=== PATIENT | female | born 1955 | race Caucasian/White ===

== ENCOUNTER → 2018-10-16 | Day surgery (SDC) | payer BC ==
--- NOTE | 2018-10-18 10:28 | PATH ---
Surgical Pathology Report Patient Name: OLGA LIDIA SAMUELS [facility]. Rec. #: [id number] /Age/Gender: 1955 (Age: 62) / F Account: [id number] Location: [facility] Taken: 10/16/2018 Received: 10/16/2018 Reported: 10/18/2018 Physicians: Linn Russell M.D. Specimen(s) Received A: LEFT BREAST WITH CALCIFICATIONS B: LEFT BREAST WITHOUT CALCIFICATIONS C: RIGHT BREAST WITH CALCIFICATIONS D: RIGHT BREAST WITHOUT CALCIFICATIONS Clinical History Nonpalpable lesion Mammographic findings: Microcalcification, suspicious Final Diagnosis A. LEFT BREAST SPECIMEN WITH CALCIFICATIONS, BIOPSY: ATYPICAL DUCTAL HYPERPLASIA (ADH) INVOLVING FIBROADENOMA, WITH ASSOCIATED CALCIFICATIONS. REMAINING BREAST TISSUE SHOWS INTRADUCTAL PAPILLOMA, PROLIFERATIVE FIBROCYSTIC CHANGES INCLUDING USUAL DUCTAL HYPERPLASIA CYSTS (UDH), APOCRINE METAPLASIA, AND COLUMNAR CELL CHANGES. B. LEFT BREAST SPECIMEN WITHOUT CALCIFICATIONS, BIOPSY: BREAST TISSUE WITH PROLIFERATIVE FIBROCYSTIC CHANGES INCLUDING USUAL DUCTAL HYPERPLASIA CYSTS (UDH), APOCRINE METAPLASIA, AND STROMAL FIBROSIS. C. RIGHT BREAST SPECIMEN WITH CALCIFICATIONS, BIOPSY BREAST TISSUE WITH PROLIFERATIVE FIBROCYSTIC CHANGES INCLUDING USUAL DUCTAL HYPERPLASIA CYSTS (UDH), ADENOSIS, MICROCYST, APOCRINE METAPLASIA, STROMAL FIBROSIS, AND MICROCALCIFICATIONS. D. RIGHT BREAST SPECIMEN WITHOUT CALCIFICATIONS, BIOPSY BREAST TISSUE WITH PROLIFERATIVE FIBROCYSTIC CHANGES INCLUDING USUAL DUCTAL HYPERPLASIA (UDH), APOCRINE METAPLASIA, MICROCYST, STROMAL FIBROSIS, AND MICROCALCIFICATIONS. Electronically Signed Katharine Orosco M.D. Gross Description A. Received in formalin labeled "left breast with calcifications," are 4 south-yellow, cylindrical portions of fibroadipose tissue ranging from 0.5-2.5 cm in length and averaging 0.3 cm in diameter. The specimens are submitted in toto in one cassette. B. Received in formalin labeled "left breast without calcifications," is a 2.0 x 1.7 x 0.3 cm aggregate of multiple south-yellow, irregular to cylindrical portions of fibroadipose tissue. The formalin is filtered and the specimen is entirely submitted in one cassette. C. Received in formalin labeled "right breast with calcifications," are 4 south-yellow, cylindrical portions of fibroadipose tissue ranging from 3.5-4.2 cm in length and averaging 0.2 cm in diameter. The specimens are submitted in toto in one cassette. D. Received in formalin labeled "right breast without calcifications," is a 2.5 x 2.4 x 0.3 cm aggregate of multiple south-yellow, irregular to cylindrical portions of fibroadipose tissue. The formalin is filtered and the specimen is entirely submitted in one cassette. Time to formalin fixation: 5 minutes Total formalin fixation time: Approximately 7 hours. 10/16/2018 [facility]10/16/2018
== END | disposition home or self-care (01) ==
LOC: FMAMMOTONE 09:13
PROVIDERS: ATTEND Surgery Surgical Oncology
PROC: 0HBV3ZX Excision of Bilateral Breast, Percutaneous Approach, Diagnostic (ICD-10-PCS; principal; 2018-10-16)
DX: D24.2 Benign neoplasm of left breast (principal); N60.92 Unspecified benign mammary dysplasia of left breast; N60.82 Other benign mammary dysplasias of left breast; N64.89 Other specified disorders of breast; N60.81 Other benign mammary dysplasias of right breast; N60.31 Fibrosclerosis of right breast
CPT/HCPCS: 19081; 88305-TC

== ENCOUNTER 2019-02-04 08:08 | Day surgery (SDC) | payer BC ==
[2019-01-27 16:43] VITALS: BMI 36.3
--- NOTE | 2019-02-03 09:25 | HP ---
Admitting History and Physical - Primary Care Physician PCP: Dani Campos - Admission Chief Complaint: left breast atypia History of Present Illness: This is a 63 yo female who was noted to have microcalcifications on mammo. The patient underwent a stereo core bx of the left breast which was c/w atypia. The patient is now to undergo left breast WE with NL. History Source: Patient Limitations to Obtaining History: No Limitations - Past Medical History Cardiovascular: Yes: HTN Endocrine: Yes: Diabetes Mellitus Additional Past Medical History: Chronic constipation ? IBS - Past Surgical History Past Surgical History: Yes: , Hysterectomy (CRYSTAL/BSO sec to fibroids 1994) Additional Past Surgical History: Bilateral knee replacement 2005 and 2016 - Advance Directives Advance Directives: Yes: Health Care Proxy - Smoking History Smoking history: Never smoked Have you smoked in the past 12 months: No - Alcohol/Substance Use Hx Alcohol Use: No Home Medications - Allergies Allergies/Adverse Reactions: Allergies Allergy/AdvReac Type Severity Reaction Status Date / Time iv contrast Allergy Severe Uncoded 01/23/19 14:02 - Home Medications Home Medications: Ambulatory Orders Lisinopril 10 mg PO DAILY #7 tablet 02/25/14 Ubidecarenone/Vitamin E Mixed [Coq10 Sg 100 Softgel] 1 each PO DAILY capsule Linaclotide [Linzess] 1 cap PO PRN PRN 02/03/15 Family Disease History - Family Disease History Family Disease History: CA: Sister (melanoma and lymphoma) Review of Systems - Review of Systems Gastrointestinal: reports: Abdominal Pain, Constipation Musculoskeletal: reports: Back Pain, Joint Pain, Joint Swelling, Muscle Pain, Other (arthralgia) Physical Examination Constitutional: Yes: Well Nourished Cardiovascular: Yes: WNL Respiratory: Yes: WNL Breast(s): Yes: Other (Breast are symmetrical and diffusely nodular without suspicious masses or adenopathy noted bilaterally.) Problem List - Problems (1) Atypical hyperplasia of left breast Code(s): N62 - HYPERTROPHY OF BREAST Assessment/Plan Left breast wide excision with NL
[2019-02-04] MEDS ORDERED: LIDOCAINE HCL 1% PRESERVATIVE FREE - 30ML VIAL ONE (10:58)
[2019-02-04] MEDS ORDERED: BUPIVACAINE HCL/PF 2.5 MG/ML - 30 ML VIAL IJ ONE (10:59)
[2019-02-04] MEDS ORDERED: PROPOFOL 20 ML ONE (11:43)
[2019-02-04] MEDS ORDERED: MIDAZOLAM HCL 2 MG/2 ML SINGLE DOSE VIAL ONE (11:43)
[2019-02-04] MEDS ORDERED: SUCCINYLCHOLINE CHLORIDE 200 MG/10 ML VIAL ONE (11:43)
[2019-02-04] MEDS ORDERED: LIDOCAINE HCL/PF 2% SDV 5ML VIAL ONE (11:59)
[2019-02-04] MEDS ORDERED: ePHEDrine SULFATE 50 MG/1 ML AMPULE ONE ×2 (12:11→12:12)
[2019-02-04] MEDS ORDERED: ONDANSETRON 4 MG/2 ML VIAL IVPUSH PRN ×2 (12:15→13:07)
[2019-02-04] MEDS ORDERED: DEXTROSE 5%-0.45% SALINE 1,000 ML IV SCH (12:15)
[2019-02-04] MEDS ORDERED: KETOROLAC TROMETHAMINE 30 MG/1 ML VIAL IVPUSH PRN (12:15)
[2019-02-04] MEDS ORDERED: ceFAZolin SODIUM 1 GM VIAL ONE ×2 (12:17→12:22)
[2019-02-04] MEDS ORDERED: ONDANSETRON 4 MG/2 ML VIAL ONE (12:22)
[2019-02-04] MEDS ORDERED: DEXAMETHASONE SOD PHOSPHATE 4 MG/1 ML VIAL ONE (12:22)
[2019-02-04] MEDS ORDERED: oxyCODONE HCL 5 MG TABLET PO PRN (13:07)
[2019-02-04] MEDS ORDERED: LACTATED RINGERS SOLUTION 1,000 ML IV SCH (13:15)
[2019-02-04] MEDS ORDERED: oxyCODONE HCL 5 MG TABLET ONE (13:39)
[2019-02-04 13:53] VITALS: TEMP 97.5
--- NOTE | 2019-02-05 06:36 | OP ---
DATE OF OPERATION: 02/04/2019 PREOPERATIVE DIAGNOSIS: Left breast atypical ductal hyperplasia. POSTOPERATIVE DIAGNOSIS: Left breast atypical ductal hyperplasia. PROCEDURE: Left mammographically localized partial mastectomy. ANESTHESIA: General, intubated. ATTENDING SURGEON: Dani Campos MD ESTIMATED BLOOD LOSS: Minimal. COMPLICATIONS: None. PROCEDURE: Patient was made aware of the risks and benefits of the procedure and consented. Preoperatively she went to the radiology suite where needle and wire were placed next to the index lesion. She was then placed in a supine position and after general anesthesia was induced the patient was intubated. The operative site was prepped and draped in the usual sterile fashion. Curvilinear incision was made and using electrocautery thick skin flaps were made. The needle was withdrawn to the puncture site and the wire to the wound. Tissues around the wire were then sharply excised and submitted with a short suture superior, long suture lateral. Specimen radiograph confirmed the presence of the index lesion. The wound was copiously irrigated with normal saline, hemostasis maintained by electrocautery. The breast was then closed with deep 2-0 Vicryl followed by subdermal 3-0 Vicryl followed by a running subcuticular 4-0 Monocryl. Dermabond was then applied and the patient, having tolerated the procedure well, was transferred to the recovery room in excellent condition. DANI CAMPOS M.D. [id number]
[2019-02-07 09:34] VITALS: BP 117/61; PULSE 70
--- NOTE | 2019-02-07 15:36 | PATH ---
Surgical Pathology Report Patient Name: OLGA LIDIA SAMUELS [facility]. Rec. #: [id number] /Age/Gender: 1955 (Age: 63) / F Account: [id number] Location: [facility] Taken: 02/04/2019 Received: 02/04/2019 Reported: 02/07/2019 Physicians: Dani Campos M.D. Specimen(s) Received LEFT BREAST WIDE EXCISION Clinical History ADH Final Diagnosis BREAST, LEFT, WIDE EXCISION: FOCAL ATYPICAL DUCTAL HYPERPLASIA (ADH) ARISING IN A BACKGROUND OF PROLIFERATIVE FIBROCYSTIC CHANGES INCLUDING CYSTIC APOCRINE METAPLASIA AND USUAL DUCTAL HYPERPLASIA (UDH), COLUMNAR CELL CHANGE, SMALL INTRADUCTAL PAPILLOMA AND FEW ASSOCIATED CALCIFICATIONS. PRIOR BIOPSY SITE CHANGES ARE PRESENT. Electronically Signed Sandra Harding M.D. Gross Description Received in formalin, labeled "left breast wide excision," is a 3.0 x 2.7 x 2.2 cm. south-yellow, irregular, portion of fibroadipose tissue with a needle localization wire present. There is a short suture marking the superior aspect and a long suture marking the lateral aspect, per the surgeon. There is no skin present. The specimen is inked as follows: superior and lateral blue; inferior green; medial yellow; anterior red; deep black. The specimen is serially sectioned from superior to inferior. Sectioning reveals a focal previous biopsy site surrounded by fibrous tissue. There is a yuan metallic biopsy clip identified within the biopsy site. No definitive mass is identified. The specimen is entirely and sequentially submitted in 6 cassettes with the superior margin in cassette 1, the inferior margin in cassette 6 and the biopsy site/clip in cassette 2. Time to formalin fixation: 5 minutes Total formalin fixation time: Approximately 29 hours. /02/05/2019 [facility]02/05/2019
== END 2019-02-04 15:15 | disposition home or self-care (01) ==
LOC: FASU 08:08
PROVIDERS: ATTEND Surgery Surgical Oncology
PROC: 0HBU0ZZ Excision of Left Breast, Open Approach (ICD-10-PCS; principal; 2019-02-04 12:20)
DX: N60.92 Unspecified benign mammary dysplasia of left breast (principal); N60.12 Diffuse cystic mastopathy of left breast; I10 Essential (primary) hypertension; E11.9 Type 2 diabetes mellitus without complications; E66.01 Morbid (severe) obesity due to excess calories; Z79.84 Long term (current) use of oral hypoglycemic drugs
CPT/HCPCS: 19281; 88307-TC; 94760

== ENCOUNTER 2019-08-20 08:16 | Inpatient (IN) | payer BC ==
[2019-08-20] MEDS ORDERED: FAMOTIDINE 20 MG TABLET PO ONE (09:11)
[2019-08-20] MEDS ORDERED: ONDANSETRON 4 MG/2 ML VIAL IVPB ONE (09:11)
[2019-08-20] MEDS ORDERED: SODIUM CHLORIDE 1,000 ML IV STA (09:11)
[2019-08-20] MEDS ORDERED: FAMOTIDINE 20 MG/50 ML IVPB 20 MG/50 ML MG IVPB ONE (09:17)
[2019-08-20 10:05] LABS: EOS % 0.2 % (0-4.5); HEMATOCRIT 34.4 % (32.4-45.2); HEMOGLOBIN 11.5 GM/dL (10.7-15.3); LYMPH % 12.6 % (8-40); MCH 30.9 pg (25.7-33.7); MCHC 33.4 g/dl (32.0-36.0); MEAN CELL VOLUME 92.4 fl (80-96); MEAN PLT VOLUME 10.4 fl (7.5-11.1); MONO % 4.2 % (3.8-10.2); PLATELET COUNT 277 K/MM3 (134-434); RBC 3.72 M/mm3 (3.60-5.2); RDW 14.9 % (11.6-15.6); WHITE BLOOD COUNT 9.6 K/mm3 (4.0-10.0)
[2019-08-20 10:33] LABS: ALBUMIN 3.8 g/dl (3.4-5.0); BILIRUBIN,TOTAL 0.3 mg/dL (0.2-1); BLOOD UREA NITROGEN 20.3 mg/dL (7-18); CALCIUM 8.9 mg/dL (8.5-10.1); CREATININE 0.7 mg/dL (0.55-1.3); POTASSIUM 3.8 mmol/L (3.5-5.1); TOT PROT 7.4 g/dl (6.4-8.2)
[2019-08-20 12:24] LABS: PH,URINE 5.5 (5.0-8.0); URINE APPEARANCE CLEAR; URINE BILIRUBIN NEGATIVE (NEGATIVE); URINE COLOR YELLOW; URINE GLUCOSE (UA) NEGATIVE (NEGATIVE); URINE KETONE NEGATIVE (NEGATIVE); URINE LEUK ESTERASE NEGATIVE (NEGATIVE); URINE NITRITE NEGATIVE (NEGATIVE); URINE PROTEIN NEGATIVE (NEGATIVE); URINE UROBILINOGEN 0.2 mg/dL (0.2-1.0)
[2019-08-20] MEDS ORDERED: morphine CARPU-JECT 2 MG/1 ML DISP.SYRIN IVPUSH ONE ×2 (13:10→13:53)
[2019-08-20] MEDS ORDERED: MORPHINE SULFATE 2 MG/ML VIAL ONE (13:18)
[2019-08-20] MEDS ORDERED: MORPHINE SULFATE 2 MG/ML VIAL IVPUSH ONE (13:53)
[2019-08-20] MEDS ORDERED: SUCRALFATE 1 GM TABLET (FP) PO ONE (15:12)
--- NOTE | 2019-08-20 16:49 | PDOC ---
Documentation entered by Toña Ricardo SCRIBE, acting as scribe for Dwight Matos MD. Dwight aMtos MD: This documentation has been prepared by the Haleigh osullivan Sammi, SCRIBE, under my direction and personally reviewed by me in its entirety. I confirm that the documentation accurately reflects all work, treatment, procedures, and medical decision making performed by me. History of Present Illness - General Chief Complaint: Pain, Acute Stated Complaint: ABD. PAIN/ VOMITNG Time Seen by Provider: 08/20/19 08:38 - History of Present Illness Initial Comments: 08/20/19 09:15 The patient is a 63 year old male, with PMH of HTN, borderline DM, who presents with epigastric abdominal pain since 11pm last night, 05/15 with associated reflux discomfort and abdominal distention. She reports 1 episode of vomiting at 3am. Denies diarrhea. Last bowel movement yesterday and was normal. Denies urinary changes. Allergies: IV contrast Surgical hx: , hysterectomy PCP: Cain Past History - Past Medical History Allergies/Adverse Reactions: Allergies Allergy/AdvReac Type Severity Reaction Status Date / Time iv contrast Allergy Severe Uncoded 01/23/19 14:02 Home Medications: Ambulatory Orders Lisinopril 10 mg PO DAILY #7 tablet 02/25/14 Ubidecarenone/Vitamin E Mixed [Coq10 Sg 100 Softgel] 1 each PO DAILY capsule Linaclotide [Linzess] 1 cap PO PRN PRN 02/03/15 Oxycodone HCl/Acetaminophen [Percocet 5-325 mg Tablet] 1 tab PO Q6H PRN #7 tablet MDD 4 02/04/19 Anemia: Yes Asthma: No Cancer: No Cardiac Disorders: No CVA: No COPD: No CHF: No Dementia: No Diabetes: No GI Disorders: Yes (DIVERTICULOSIS;CONSTIPATION;INT HEARTBURN; HIATAL HERNIA, ANTRAL ULCERS) Disorders: No HTN: Yes Hypercholesterolemia: Yes Liver Disease: No Seizures: No Thyroid Disease: No - Surgical History Abdominal Surgery: No Appendectomy: No Cardiac Surgery: No Cholecystectomy: No Lung Surgery: No Neurologic Surgery: No Orthopedic Surgery: Yes (RIGHT KNEE REPLACEMENT) - Immunization History Immunization Up to Date: No - Psycho Social/Smoking Cessation Hx Smoking History: Never smoked Have you smoked in the past 12 months: No Information on smoking cessation initiated: No Hx Alcohol Use: No Drug/Substance Use Hx: No Substance Use Type: None Hx Substance Use Treatment: No Review of Systems - Review of Systems Comments:: 08/20/19 09:15 CONSTITUTIONAL: No fever, no chills, no fatigue CARDIOVASCULAR: No chest pain, no palpitations RESPIRATORY: No cough, no SOB GI: +epigastric pain +abdominal distention GENITOURINARY: No dysuria, no frequency, no hematuria MUSKULOSKELETAL: No backpain, no joint pain, no myalgias SKIN: No rash NEURO: No headache *Physical Exam - Vital Signs Last Vital Signs Temp Pulse Resp BP Pulse Ox 98.0 F 74 16 147/76 99 08/20/19 08:23 08/20/19 08:23 08/20/19 08:23 08/20/19 08:23 08/20/19 08:23 - Physical Exam 08/20/19 12:15 CONSTITUTIONAL: Well-appearing; well-nourished; in no apparent distress EYES: PERRL; EOM intact ENMT: External appears normal; normal oropharynx NECK: Supple; non-tender; no cervical lymphadenopathy CARD: Normal S1, S2; no murmurs, rubs, or gallops RESP: Normal chest excursion with respiration; breath sounds clear and equal bilaterally; no wheezes, rhonchi, or rales ABD: +Epigastric, LUQ, LLQ tenderness EXT: Normal ROM in all four extremities; non-tender to palpation; distal pulses intact SKIN: Warm, dry, no rash NEURO: No focal neurological deficiencies. ED Treatment Course - LABORATORY CBC & Chemistry Diagram: 08/20/19 09:20 08/20/19 09:20 - ADDITIONAL ORDERS Additional order review: Laboratory Results 08/20/19 08/20/19 08/20/19 11:44 09:20 09:20 Sodium 137 Potassium 3.8 Chloride 106 Carbon Dioxide 26 Anion Gap 6 L BUN 20.3 H Creatinine 0.7 Est GFR (CKD-EPI)AfAm 108.38 Est GFR (CKD-EPI)NonAf 93.51 Random Glucose 116 H Calcium 8.9 Total Bilirubin 0.3 AST 12 L ALT 24 Alkaline Phosphatase 89 Creatine Kinase Troponin I Total Protein 7.4 Albumin 3.8 Lipase 74 Urine Color Yellow Urine Appearance Clear Urine pH 5.5 Ur Specific [place] 1.013 Urine Protein Negative Urine Glucose (UA) Negative Urine Ketones Negative Urine Blood Negative Urine Nitrite Negative Urine Bilirubin Negative Urine Urobilinogen 0.2 Ur Leukocyte Esterase Negative 08/20/19 09:20 Sodium Potassium Chloride Carbon Dioxide Anion Gap BUN Creatinine Est GFR (CKD-EPI)AfAm Est GFR (CKD-EPI)NonAf Random Glucose Calcium Total Bilirubin AST ALT Alkaline Phosphatase Creatine Kinase 113 Troponin I < 0.02 Total Protein Albumin Lipase Urine Color Urine Appearance Urine pH Ur Specific [place] Urine Protein Urine Glucose (UA) Urine Ketones Urine Blood Urine Nitrite Urine Bilirubin Urine Urobilinogen Ur Leukocyte Esterase 08/20/19 09:20 RBC 3.72 MCV 92.4 MCHC 33.4 RDW 14.9 MPV 10.4 Neutrophils % 82.0 Lymphocytes % 12.6 Monocytes % 4.2 Eosinophils % 0.2 Basophils % 1.0 - RADIOLOGY Radiology Studies Ordered: Category Date Time Status ABDOMEN & PELVIS CT W/O CONTR [CT] Stat CT Scan 08/20/19 11:32 Completed ABDOMEN US -LIMITED [US] Stat Ultrasound 08/20/19 15:12 Completed - Medications Given in the ED: ED Medications Discontinued Medications Generic Name Dose Route Start Last Admin Trade Name Freq PRN Reason Stop Dose Admin Famotidine 20 mg 08/20/19 09:11 08/20/19 09:55 Pepcid - PO 08/20/19 09:12 Not Given ONCE ONE Medical Decision Making - Medical Decision Making 08/20/19 16:48 Patient 63-year-old female with history of hypertension, prediabetes, peptic ulcer disease who presents with atraumatic right upper quadrant, epigastric and left upper quadrant abdominal pain which increased in severity over the past 24 hours, associated with nausea, and a singular episode of nonbloody, nonbilious vomiting prior to arrival. In the ER, patient is awake and alert, nontoxic- appearing, with mild to moderate tenderness to palpation in the right upper quadrant and the epigastrium primarily; patient is received H2 blockers, Carafate and IV morphine with modest improvement in level of her pain. CT of abdomen pelvis revealed no evidence of significant intra-abdominal pathology, cholelithiasis was noted. Right upper quadrant ultrasound revealed multiple calculi with a borderline gallbladder wall thickness. Patient continues to complain of pain at this time. She will likely require admission for HIDA scan as well as surgical and GI evaluations. Discharge - Discharge Information Problems reviewed: Yes Clinical Impression/Diagnosis: Epigastric pain Cholelithiases Qualifiers: Cholelithiasis location: gallbladder Cholecystitis presence: without cholecystitis Biliary obstruction: without biliary obstruction Qualified Code(s) : K80.20 - Calculus of gallbladder without cholecystitis without obstruction Condition: Fair - Admission Yes - Follow up/Referral - Patient Discharge Instructions - Post Discharge Activity
--- NOTE | 2019-08-20 19:46 | HP ---
Admitting History and Physical - Admission Chief Complaint: Acute RUQ and epigastric pain accompanied by nausea and vomiting. History of Present Illness: This 63 yr old female with hx of hypertension, prediabetes, and peptic ulcer disease admitted via ER with acute RUQ and epigastric abdominal pain accompanied by nausea and one bout of vomiting. History Source: Patient, Medical Record Limitations to Obtaining History: No Limitations - Past Medical History CLINICAL TRAINING COORDINATOR: No: Alzheimer's, CVA, Dementia, Migraine, Multiple Sclerosis, Peripheral Neuropathy, Parkinson's, Seizure, Syncope, TIA, Vertigo, Other Cardiovascular: Yes: HTN Pulmonary: No: Asthma, Bronchitis, Cancer, COPD, O2 Dependent, Pneumonia, Previously Intubated, Pulmonary Embolus, Pulmonary Fibrosis, Sleep Apnea, Other Gastrointestinal: Yes: Constipation, Diverticulosis, Peptic Ulcer Disease Hepatobiliary: Yes: Cholelithiasis Renal/: No: Renal Failure, Renal Inusuff, BPH, Cancer, Hematuria, Hemodialysis , Neurogenic Bladder, Renal Calculi, UTI, Other Reproductive: Yes: Fibroids, Other (s/p hysterectomy with bilateral oophorectomy ) Heme/Onc: No: Anemia, B12 Deficiency, Bleeding Disorder, Cancer, Current Chemotherapy, Current Radiation Therapy, Hemochromatosis, Hypercoaguable State, Myeloproliferative Synd, Sickle Cell Disease, Sickle Cell Trait, Thrombocytopenia, Other Infectious Disease: No: AIDS, C-Diff, Herpes Zoster, HIV, MRSA, STD's, Tuberculosis, VREF, Other Psych: No: Addictions, Anxiety, Bipolar, Depression, Panic, Psychosis, Schizophrenia, Other Musculoskeletal: Yes: Osteoarthritis, Other (s/p bilateral knee replacement) Rheumatology: No: Fibromyalgia, Gout, Lupus, Rheumatoid Arthritis, Sarcoidosis, Vasculitis, Other ENT: No: Allergic Rhinitis, Sinusitis, Other Endocrine: Yes: Diabetes Mellitus Dermatology: No: Basal Cell, Cellulitis, Eczema, Melanoma, Psoriasis, Squamous Cell, Other - Past Surgical History Past Surgical History: Yes: , Hysterectomy (CRYSTAL/BSO sec to fibroids 1994), Oopherectomy - Smoking History Smoking history: Never smoked Have you smoked in the past 12 months: No - Alcohol/Substance Use Hx Alcohol Use: No - Social History Usual Living Arrangement: Yes: Alone History of Recent Travel: No Home Medications - Allergies Allergies/Adverse Reactions: Allergies Allergy/AdvReac Type Severity Reaction Status Date / Time iv contrast Allergy Severe Uncoded 01/23/19 14:02 - Home Medications Home Medications: Ambulatory Orders Lisinopril 10 mg PO DAILY #7 tablet 02/25/14 Ubidecarenone/Vitamin E Mixed [Coq10 Sg 100 Softgel] 1 each PO DAILY capsule Linaclotide [Linzess] 1 cap PO PRN PRN 02/03/15 Oxycodone HCl/Acetaminophen [Percocet 5-325 mg Tablet] 1 tab PO Q6H PRN #7 tablet MDD 4 02/04/19 Family Medical History Family Hx Cancer: Sister (h) Review of Systems - Review of Systems Constitutional: reports: Loss of Appetite Eyes: reports: No Symptoms HENT: reports: No Symptoms Neck: reports: No Symptoms Cardiovascular: reports: No Symptoms Respiratory: reports: No Symptoms Gastrointestinal: reports: Constipation, Nausea, Vomiting Genitourinary: reports: No Symptoms Breasts: reports: No Symptoms Reported Musculoskeletal: reports: No Symptoms Integumentary: reports: No Symptoms Neurological: reports: No Symptoms Endocrine: reports: No Symptoms Hematology/Lymphatic: reports: No Symptoms Psychiatric: reports: No Symptoms Physical Examination Vital Signs: Vital Signs Temperature 98.3 F 08/20/19 16:25 Pulse Rate 65 08/20/19 16:25 Respiratory Rate 18 08/20/19 16:25 Blood Pressure 143/79 08/20/19 16:25 O2 Sat by Pulse Oximetry (%) 97 08/20/19 16:25 Constitutional: Yes: Well Nourished, Calm, Mild Distress Eyes: Yes: Conjunctiva Clear, EOM Intact HENT: Yes: Atraumatic, Normocephalic Neck: Yes: Supple, Trachea Midline Cardiovascular: Yes: Regular Rate and Rhythm Respiratory: Yes: Regular, CTA Bilaterally Gastrointestinal: Yes: Normal Bowel Sounds, Soft, Tenderness, Epigastrium ...Rectal Exam: Yes: Deferred Renal/: Yes: WNL Breast(s): Yes: WNL Musculoskeletal: Yes: Other (s/p bilateral knee repacement) Extremities: Yes: WNL Edema: No Peripheral Pulses WNL: Yes Peripheral Pulses: Left Radial: 2+, Right Radial: 2+, Left Doralis Pedis: 2+, Right Dorsalis Pedis: 2+, Left Femoral: 2+, Right Femoral: 2+ Integumentary: Yes: WNL Neurological: Yes: Alert, Oriented ...Motor Strength: WNL Psychiatric: Yes: Alert, Oriented Labs: CBC, BMP 08/20/19 09:20 08/20/19 09:20 Imaging - Results Other: Report Reviewed (Lab data reviewed) Problem List - Problems (1) RUQ abdominal pain Code(s): R10.11 - RIGHT UPPER QUADRANT PAIN (2) Cholelithiases Code(s): K80.20 - CALCULUS OF GALLBLADDER W/O CHOLECYSTITIS W/O OBSTRUCTION Qualifiers: Cholelithiasis location: gallbladder Cholecystitis presence: without cholecystitis Biliary obstruction: without biliary obstruction Qualified Code(s): K80.20 - Calculus of gallbladder without cholecystitis without obstruction (3) Epigastric pain Code(s): R10.13 - EPIGASTRIC PAIN (4) Hypertension Code(s): I10 - ESSENTIAL (PRIMARY) HYPERTENSION (5) Prediabetes Code(s): R73.03 - PREDIABETES (6) Diverticulosis Code(s): K57.90 - DVRTCLOS OF INTEST, PART UNSP, W/O PERF OR ABSCESS W/O BLEED (7) Facet arthritis, degenerative, lumbar spine Code(s): M47.816 - SPONDYLOSIS W/O MYELOPATHY OR RADICULOPATHY, LUMBAR REGION Assessment/Plan Assessment/plan: acute RUQ and epigastric pain, acute nausea and vomiting; IV fluids, analgesics, antiemetic, npo except for meds, consult to GI and surgeon.
[2019-08-20] MEDS ORDERED: traMADol HCL 50 MG TABLET PO PRN (20:05)
[2019-08-20] MEDS ORDERED: LACTATED RINGERS SOLUTION 1,000 ML/1,000 ML INFUS.BAG IV SCH (20:05)
[2019-08-20] MEDS ORDERED: ONDANSETRON 4 MG TABLET PO PRN (20:09)
[2019-08-20 23:26] VITALS: BMI 36.0
[2019-08-21] MEDS ORDERED: traMADol HCL 50 MG TABLET ONE (06:19)
[2019-08-21 06:58] LABS: EOS % 3.8 % (0-4.5); HEMATOCRIT 32.2 % (32.4-45.2); HEMOGLOBIN 10.8 GM/dL (10.7-15.3); LYMPH % 26.1 % (8-40); MCH 31.2 pg (25.7-33.7); MCHC 33.7 g/dl (32.0-36.0); MEAN CELL VOLUME 92.6 fl (80-96); MEAN PLT VOLUME 10.7 fl (7.5-11.1); MONO % 11.7 % (3.8-10.2); NEUT % 57.4 % (42.8-82.8); PLATELET COUNT 253 K/MM3 (134-434); RBC 3.48 M/mm3 (3.60-5.2); RDW 14.8 % (11.6-15.6); WHITE BLOOD COUNT 7.4 K/mm3 (4.0-10.0)
[2019-08-21 07:38] LABS: BILIRUBIN,TOTAL 0.4 mg/dL (0.2-1); BLOOD UREA NITROGEN 12.4 mg/dL (7-18); CALCIUM 8.6 mg/dL (8.5-10.1); CREATININE 0.7 mg/dL (0.55-1.3); POTASSIUM 3.5 mmol/L (3.5-5.1); TOT PROT 6.2 g/dl (6.4-8.2)
--- NOTE | 2019-08-21 09:01 | CONSULT ---
- Consultation REQUESTING PROVIDER: Carlo WEIR CONSULT REQUEST: We have been asked to surgically evaluate this patient for abdominal pain. PCP:Sarita Barlow MD HISTORY OF PRESENT ILLNESS:CTSP patient who is a 63 year old female, with PMH of HTN, borderline DM, who presents with epigastric abdominal pain since 11pm last night, 05/15 with associated reflux discomfort and abdominal distention. She reports 1 episode of vomiting at 3am. Denies diarrhea. Last bowel movement yesterday and was normal. Denies urinary changes. Denies dark urine/light stools ; no other GI//WATERSHED COORDINATOR c/o; she has been on a "keto diet "; she knew she had gallstones in the past from previous imaging.Pain is colicky in nature and started after eating. . PMHx: HTN/HLD/abnormal breast imaging PSHx: CRYSTAL; C-S ; b/l TKR Home Medications Medication Instructions Recorded Lisinopril 10 mg PO DAILY #7 tablet 02/25/14 Ubidecarenone/Vitamin E Mixed 1 each PO DAILY capsule 02/25/14 [Coq10 Sg 100 Softgel] Linaclotide [Linzess] 1 cap PO PRN PRN 02/03/15 Oxycodone HCl/Acetaminophen 1 tab PO Q6H PRN #7 tablet MDD 4 02/04/19 [Percocet 5-325 mg Tablet] Allergies Allergy/AdvReac Type Severity Reaction Status Date / Time Iodinated Contrast Media Allergy Severe Swelling Verified 08/20/19 20:46 iv contrast Allergy Severe Uncoded 01/23/19 14:02 REVIEW OF SYSTEMS: CONSTITUTIONAL: Absent: fever, chills, diaphoresis, generalized weakness, malaise, loss of appetite, weight change CARDIOVASCULAR: Absent: chest pain, syncope, palpitations, irregular heart rate, lightheadedness , peripheral edema RESPIRATORY: Absent: cough, shortness of breath, dyspnea with exertion, wheezing, stridor, hemoptysis GASTROINTESTINAL: Present: abdominal pain, abdominal distension, nausea, vomiting, Absent: diarrhea, constipation, melena, hematochezia GENITOURINARY: Absent: dysuria, frequency, urgency, hesitancy, hematuria, flank pain, genital pain MUSCULOSKELETAL: Absent: myalgia, arthralgia, joint swelling, back pain, neck pain SKIN: Absent: rash, itching, pallor HEMATOLOGIC/IMMUNOLOGIC: Absent: easy bleeding, easy bruising, lymphadenopathy NEUROLOGIC: Absent: headache, focal weakness, paresthesias, dizziness, unsteady gait, seizure, mental status changes, bladder or bowel incontinence PSYCHIATRIC: Absent: anxiety, depression, suicidal or homicidal ideation, hallucinations. PHYSICAL EXAM: GENERAL: Awake, alert, and fully oriented, in no acute distress. HEAD: Normal with no signs of trauma. EYES: PERRL, sclera anicteric, conjunctiva clear. NECK: Normal ROM, supple without lymphadenopathy, JVD, or masses. ABDOMEN: Soft, tender RUQ to deep palpation, not distended, normoactive bowel sounds, no guarding, no rebound, no masses. No organomegaly. No hernias; healed surgical scars. MUSCULOSKELETAL: Normal ROM at all joints. No bony deformities or tenderness. No CVA tenderness. b/l TKR scars UPPER EXTREMITIES: 2+ pulses, warm, well-perfused. No cyanosis. Cap refill <2 seconds. No peripheral edema. LOWER EXTREMITIES: 2+ pulses, warm, well-perfused. No calf tenderness. No peripheral edema. NEUROLOGICAL: Normal speech, gait not observed. PSYCH: Cooperative. Good eye contact. Appropriate mood and affect. SKIN: Warm, dry, normal turgor, no rashes or lesions noted. Vital Signs Temperature 98.1 F 08/21/19 06:00 Pulse Rate 81 08/21/19 06:00 Respiratory Rate 16 08/21/19 06:00 Blood Pressure 123/80 08/21/19 06:00 O2 Sat by Pulse Oximetry (%) 98 08/20/19 23:15 Lab Results WBC 7.4 K/mm3 (4.0-10.0) 08/21/19 06:00 RBC 3.48 M/mm3 (3.60-5.2) L 08/21/19 06:00 Hgb 10.8 GM/dL (10.7-15.3) 08/21/19 06:00 Hct 32.2 % (32.4-45.2) L 08/21/19 06:00 MCV 92.6 fl (80-96) 08/21/19 06:00 MCHC 33.7 g/dl (32.0-36.0) 08/21/19 06:00 RDW 14.8 % (11.6-15.6) 08/21/19 06:00 Plt Count 253 K/MM3 (134-434) 08/21/19 06:00 Sodium 140 mmol/L (136-145) 08/21/19 06:00 Potassium 3.5 mmol/L (3.5-5.1) 08/21/19 06:00 Chloride 107 mmol/L (98-107) 08/21/19 06:00 Carbon Dioxide 30 mmol/L (21-32) 08/21/19 06:00 Anion Gap 3 MMOL/L (8-16) L 08/21/19 06:00 BUN 12.4 mg/dL (7-18) 08/21/19 06:00 Creatinine 0.7 mg/dL (0.55-1.3) 08/21/19 06:00 Random Glucose 95 mg/dL (74-106) 08/21/19 06:00 Calcium 8.6 mg/dL (8.5-10.1) 08/21/19 06:00 Imaging w/u reviewed. IMP: biliary colic; cholelithiasis PLAN: NPO/IVF/IVAB's; lap estela possible open this AM; r/b/t/a's d/w the patient including conversion to an open procedure. Kong Oconnor MD FACS
[2019-08-21] MEDS ORDERED: LISINOPRIL 10 MG TABLET (FP) PO SCH (10:00)
[2019-08-21] MEDS ORDERED: BENZOIN/ALOE VERA/STORAX/TOLU 58 ML BOTTLE ONE (10:13)
[2019-08-21] MEDS ORDERED: fentaNYL CITRATE 250 MCG/5 ML VIAL ONE (10:15)
[2019-08-21] MEDS ORDERED: MIDAZOLAM HCL 2 MG/2 ML SINGLE DOSE VIAL ONE (10:15)
[2019-08-21] MEDS ORDERED: CEFAZOLIN 2 GM in DEXTROSE 5%-WATER - 50 ML IVPB SCH (10:45)
[2019-08-21] MEDS ORDERED: ceFAZolin SODIUM 1 GM VIAL IVPB ONE (10:55)
[2019-08-21] MEDS ORDERED: NEOSTIGMINE METHYLSULFATE 0.5 MG/ML - 10 ML MDV ONE (11:45)
[2019-08-21] MEDS ORDERED: BUPIVACAINE HCL/PF 0.5% (5 MG/ML) 30 ML VIAL IJ ONE (11:50)
[2019-08-21] MEDS ORDERED: DEXAMETHASONE SOD PHOSPHATE 4 MG/1 ML VIAL ONE (11:51)
[2019-08-21] MEDS ORDERED: GLYCOPYRROLATE 0.2 MG/1 ML VIAL ONE ×2 (11:51)
[2019-08-21] MEDS ORDERED: LIDOCAINE HCL/PF 2% SDV 5ML VIAL ONE (11:51)
[2019-08-21] MEDS ORDERED: LIDOCAINE HCL 2% JELLY (5 ML/TUBE) ONE (11:51)
[2019-08-21] MEDS ORDERED: ceFAZolin SODIUM 1 GM VIAL ONE ×2 (11:51)
--- NOTE | 2019-08-21 11:55 | EKG ---
Test Reason : Blood Pressure : / mmHG Vent. Rate : 063 BPM Atrial Rate : 063 BPM P-R Int : 132 ms QRS Dur : 074 ms QT Int : 396 ms P-R-T Axes : 030 007 036 degrees QTc Int : 405 ms SINUS RHYTHM WITH PREMATURE ATRIAL COMPLEXES OTHERWISE NORMAL ECG NO PREVIOUS ECGS AVAILABLE Confirmed by ALEJO CASTILLO MD ([id number]) on 08/21/2019 11:55:14 AM Referred By: Confirmed By:ALEJO CASTILLO MD
--- NOTE | 2019-08-21 12:24 | OP ---
Operative Note - Note: Operative Date: 08/21/19 Pre-Operative Diagnosis: acute cholecystitis/cholelithiasis Operation: laparoscopic cholecystectomy Findings: acute gangrenous cholecystitis/cholelthiasis Post-Operative Diagnosis: Other (acute gangrenous cholecystitis/cholelthiasis) Surgeon: Kong Oconnor Driller Helper: Martell Riojas Anesthesiologist/DRY TALC RACKER: Catrina Clinton Anesthesia: General Specimens Removed: gallbladder and contents Estimated Blood Loss (mls): 25 Drains & Tubes with Location: 10 mm JORGE in gallbladder fossa
[2019-08-21] MEDS ORDERED: LACTATED RINGERS SOLUTION 1,000 ML/1,000 ML INFUS.BAG IV SCH (12:30)
[2019-08-21] MEDS ORDERED: oxyCODONE HCL 5 MG TABLET PO PRN ×4 (12:31→14:07)
[2019-08-21] MEDS ORDERED: LINACLOTIDE PO PRN (12:34)
[2019-08-21] MEDS ORDERED: ACETAMINOPHEN 325 MG TABLET (FP) PO PRN (12:37)
--- NOTE | 2019-08-21 13:09 | CON.GI ---
Consult Consult Specialty:: GI Referred by:: Hospitalist Service Reason for Consultation:: Abdominal Pain - History of Present Illness Chief Complaint: RUQ pain History of Present Illness: 63F admitted through [facility] for relatively abrupt and progressive upper abdominal / RUQ pain. Abd US revealed gallstones. CT scan was unrevealing. Taken to OR for suspected biliary colic. Had Lap Peggy that revealed gangrenous cholecystitis. evaluated in PACU. Was followed by tower dragline operator Dr. Mercedes Gutierrez. She performed: Colonoscopy 2008: Mild diverticulosis and ileitis EGD 2008: Normal EGD 2013: antral ulcers Colonoscopy 2014: Mild diverticulosis and otherwise normal. Normal TI EGD 2015: 2cm sliding HH, ? or short segment sparks's ray (neg h. pylori) She believes that she had a colonoscopy 2 years ago as well that was unremarkable There is no family history of colorectal cancer. - History Source History Provided By: Patient - Past Medical History Cardio/Vascular: Yes: HTN Gastrointestinal: Yes: Constipation, Diverticulosis, Peptic Ulcer Disease Hepatobiliary: Yes: Cholelithiasis ...: No Musculoskeletal: Yes: Osteoarthritis, Other (s/p bilateral knee replacement) Endocrine: Yes: Diabetes Mellitus - Past Surgical History Past Surgical History: Yes: , Hysterectomy (CRYSTAL/BSO sec to fibroids 1994), Joint Replacement (B/L TKR) Additional Surgical History: BTL - Alcohol/Substance Use Hx Alcohol Use: No - Smoking History Smoking history: Never smoked Have you smoked in the past 12 months: No - Social History Usual Living Arrangement: Alone ADL: Independent Occupation: Teacher History of Recent Travel: No Home Medications - Allergies Allergies/Adverse Reactions: Allergies Allergy/AdvReac Type Severity Reaction Status Date / Time Iodinated Contrast Media Allergy Severe Swelling Verified 08/20/19 20:46 iv contrast Allergy Severe Uncoded 01/23/19 14:02 - Home Medications Home Medications: Ambulatory Orders Lisinopril 10 mg PO DAILY #7 tablet 02/25/14 Ubidecarenone/Vitamin E Mixed [Coq10 Sg 100 Softgel] 1 each PO DAILY capsule Linaclotide [Linzess] 1 cap PO PRN PRN 02/03/15 Oxycodone HCl/Acetaminophen [Percocet 5-325 mg Tablet] 1 tab PO Q6H PRN #7 tablet MDD 4 02/04/19 Family Medical History Other Family History: Mother: alive: healthy. Father: : 54: Accident. 1 sister: lymphoma. 1 son, 1 daughter: healthy. No family history of colorectal cancer or other GI malignancy Review of Systems - Review of Systems Constitutional: denies: Chills Neck: denies: Tenderness Respiratory: denies: Cough Gastrointestinal: reports: Abdominal Pain, Nausea, Vomiting Physical Exam-GI Vital Signs: Vital Signs Temperature 98.3 F 08/21/19 09:16 Pulse Rate 81 08/21/19 09:16 Respiratory Rate 17 08/21/19 09:16 Blood Pressure 118/70 08/21/19 09:16 O2 Sat by Pulse Oximetry (%) 98 08/21/19 08:58 Constitutional: Yes: Calm Eyes: No: Sclera Icterus Cardiovascular: Yes: Regular Rate and Rhythm. No: Murmur Respiratory: Yes: Diminished (at bases bilaterally. Poor insp effort) Gastrointestinal Inspection: Yes: Scars (dressed trochar scars), Other (JORGE drain in ruq with serosanguinous drainage) ...Auscultate: Yes: Normoactive Bowel Sounds ...Palpate: Yes: Soft, Tenderness (TTP at trochar sites). No: Hepatomegaly, Splenomegaly ...Percussion: No: Tympanitic Edema: No (No LE edema) Neurological: Yes: Alert Labs: CBC, BMP 08/21/19 06:00 08/21/19 06:00 Hepatic Panel Total Bilirubin 0.4 mg/dL (0.2-1) 08/21/19 06:00 AST 12 U/L (15-37) L 08/21/19 06:00 ALT 23 U/L (13-61) 08/21/19 06:00 Alkaline Phosphatase 80 U/L (45-117) 08/21/19 06:00 Albumin 3.0 g/dl (3.4-5.0) L 08/21/19 06:00 Problem List - Problems (1) RUQ abdominal pain Assessment/Plan: Went to OR, Noted to have gangrenous cholecystitis, had Lap Peggy Post op care per surgery Outpatient GI follow-up Recall as needed Code(s): R10.11 - RIGHT UPPER QUADRANT PAIN
[2019-08-21] MEDS ORDERED: ONDANSETRON 4 MG/2 ML VIAL IVPUSH PRN (14:07)
[2019-08-21] MEDS ORDERED: PROMETHAZINE HCL 25 MG/1 ML VIAL IVPB PRN (14:07)
[2019-08-21] MEDS: LACTATED RINGERS SOLUTION 1,000 ML IV SCH (14:15)
--- NOTE | 2019-08-21 14:27 | SURG ---
Surgery Router Setter Note Router Setter: Martell Riojas PA-C Date of Service: 08/21/19 Diagnosis: acute cholecystitis/cholelithiasis Procedure: laparoscopic cholecystectomy I was present for the entirety of the operative procedure. For further detail, please refer to operative report. Visit type - Case Type Case Type: ED Admission - Emergency Emergency Visit: Yes ED Registration Date: 08/20/19 Care time: The patient presented to the Emergency Department on the above date and was hospitalized for further evaluation of their emergent condition. - New patient This patient is new to me today: Yes Date on this admission: 08/21/19 - Critical Care Critical Care patient: No
--- NOTE | 2019-08-21 15:43 | PN ---
Progress Note, Physician Chief Complaint: Patient seen and examined at the bedside, just undergone laparascopic cholecystectomy, found to have gangrenous cholecystitis, feeling fatigued and somnolent. History of Present Illness: This 63 yr old female with hx of prediabetes, mild diverticulosis, HTN, and antral ulcers admitted via ER with acute RUQ and epigastric pain, acute nausea and vomiting. Patient undergone laparascopic cholecystectomy today and was found to have a gangrenous cholecystitis. - Current Medication List Current Medications: Active Medications Acetaminophen (Tylenol -) 650 mg PO Q6H PRN PRN Reason: FEVER Fentanyl (Sublimaze Injection -) 50 mcg IVPUSH [id number] PRN PRN Reason: PAIN-PACU ORDER X 4 DOSES ONLY Stop: 08/22/19 14:06 Last Admin: 08/21/19 14:42 Dose: 50 mcg Cefazolin Sodium/Dextrose (Ancef 2 Gm Premixed Ivpb -) 2 gm in 50 mls @ 100 mls /hr IVPB Q8H-IV RORO Stop: 08/22/19 02:29 Lactated Ringer's (Lactated Ringers Solution) 1,000 mls @ 125 mls/hr IV ASDIR ROR[facility] Last Admin: 08/21/19 14:15 Dose: 100 mls Lisinopril (Prinivil) 10 mg PO DAILY [facility] Ondansetron HCl (Zofran Injection) 4 mg IVPUSH Q6H PRN PRN Reason: NAUSEA AND/OR VOMITING Oxycodone HCl (Roxicodone -) 10 mg PO Q4H PRN PRN Reason: PAIN LEVEL 6-10 Oxycodone HCl (Roxicodone -) 5 mg PO Q4H PRN PRN Reason: PAIN LEVEL 1-5 Promethazine HCl (Phenergan Injection -) 12.5 mg IVPB Q6H PRN PRN Reason: NAUSEA-FOR RESCUE AFTER 15 MIN Stop: 08/22/19 14:06 - Objective Vital Signs: Vital Signs Temperature 99.1 F 08/21/19 15:15 Pulse Rate 61 08/21/19 15:15 Respiratory Rate 13 08/21/19 15:15 Blood Pressure 123/97 08/21/19 15:15 O2 Sat by Pulse Oximetry (%) 98 08/21/19 15:15 Constitutional: Yes: Well Nourished, Calm, Mild Distress Eyes: Yes: Conjunctiva Clear, EOM Intact HENT: Yes: Atraumatic, Normocephalic Neck: Yes: Supple, Trachea Midline Cardiovascular: Yes: Regular Rate and Rhythm Respiratory: Yes: Regular, CTA Bilaterally Gastrointestinal: Yes: Soft, Hypoactive Bowel Sounds ...Rectal Exam: Yes: Deferred Genitourinary: Yes: WNL Breast(s): Yes: WNL Musculoskeletal: Yes: WNL Extremities: Yes: WNL Edema: No Peripheral Pulses WNL: Yes Peripheral Pulses: Left Radial: 3+, Right Radial: 3+, Left Doralis Pedis: 3+, Right Dorsalis Pedis: 3+, Left Femoral: 3+, Right Femoral: 3+ Integumentary: Yes: WNL Neurological: Yes: Alert, Oriented ...Motor Strength: WNL Psychiatric: Yes: Alert, Oriented Labs: CBC, BMP 08/21/19 06:00 08/21/19 06:00 Problem List - Problems (1) RUQ abdominal pain Code(s): R10.11 - RIGHT UPPER QUADRANT PAIN (2) Cholelithiases Code(s): K80.20 - CALCULUS OF GALLBLADDER W/O CHOLECYSTITIS W/O OBSTRUCTION Qualifiers: Cholelithiasis location: gallbladder Cholecystitis presence: without cholecystitis Biliary obstruction: without biliary obstruction Qualified Code(s): K80.20 - Calculus of gallbladder without cholecystitis without obstruction (3) Epigastric pain Code(s): R10.13 - EPIGASTRIC PAIN (4) Hypertension Code(s): I10 - ESSENTIAL (PRIMARY) HYPERTENSION (5) Prediabetes Code(s): R73.03 - PREDIABETES (6) Diverticulosis Code(s): K57.90 - DVRTCLOS OF INTEST, PART UNSP, W/O PERF OR ABSCESS W/O BLEED (7) Facet arthritis, degenerative, lumbar spine Code(s): M47.816 - SPONDYLOSIS W/O MYELOPATHY OR RADICULOPATHY, LUMBAR REGION (8) Acute gangrenous cholecystitis Code(s): K81.0 - ACUTE CHOLECYSTITIS Assessment/Plan Assessment/plan: acute RUQ and epigastric pain, acute nausea and vomiting, undergone laprascopic cholecystectomy and was found to have a gangrenous cholecystitis; IV fluids, IV Cefazolin, early ambulation, analgesics.
[2019-08-21] MEDS ORDERED: PT OWN MED DRAWER 7, Y5N ONE (17:10)
[2019-08-21] MEDS: CEFAZOLIN 2 GM/D5W 2 GM/50 ML ML IVPB SCH (17:29)
[2019-08-22] MEDS: CEFAZOLIN 2 GM/D5W 2 GM/50 ML ML IVPB SCH (01:44)
[2019-08-22 08:11] LABS: BASO % 0.4 % (0-2.0); EOS % 1.2 % (0-4.5); HEMOGLOBIN 9.7 GM/dL (10.7-15.3); LYMPH % 23.3 % (8-40); MCH 31.1 pg (25.7-33.7); MCHC 33.6 g/dl (32.0-36.0); MEAN CELL VOLUME 92.5 fl (80-96); MEAN PLT VOLUME 10.4 fl (7.5-11.1); MONO % 11.3 % (3.8-10.2); NEUT % 63.8 % (42.8-82.8); PLATELET COUNT 232 K/MM3 (134-434); RBC 3.13 M/mm3 (3.60-5.2); WHITE BLOOD COUNT 8.8 K/mm3 (4.0-10.0)
--- NOTE | 2019-08-22 08:11 | PN ---
Progress Note (short form) - Note Progress Note: Anesthesia post op Pt seen and examined S:Alert and awake, comfortable O; Vital Signs Temperature 97.9 F 08/22/19 06:00 Pulse Rate 86 08/22/19 06:00 Respiratory Rate 08/22/19 06:00 Blood Pressure 104/66 08/22/19 06:00 O2 Sat by Pulse Oximetry (%) 97 08/21/19 19:51 A/P Current Active Problems Acute gangrenous cholecystitis (Acute) Cholelithiases (Acute) Diverticulosis (Acute) Epigastric pain (Acute) Facet arthritis, degenerative, lumbar spine (Acute) Hypertension (Acute) Prediabetes (Acute) RUQ abdominal pain (Acute) s/p lap Cholecytectomy Doing well post op Continue current care Desmond Santillan MD
[2019-08-22 08:35] LABS: ALBUMIN 2.9 g/dl (3.4-5.0); BILIRUBIN,TOTAL 0.4 mg/dL (0.2-1); BLOOD UREA NITROGEN 12.1 mg/dL (7-18); CALCIUM 8.6 mg/dL (8.5-10.1); CREATININE 0.7 mg/dL (0.55-1.3); TOT PROT 6.1 g/dl (6.4-8.2)
[2019-08-22] MEDS: LISINOPRIL 10 MG TABLET (FP) PO SCH (10:11)
--- NOTE | 2019-08-22 10:12 | PN ---
Progress Note (short form) - Note Progress Note: SURGERY 63F s/p lap estela POD 1, pt seen and examined at bedside. Pt states she is feeling well. Pt denies fever, chills, n/v, sob, cp. Pt tolerating PO and urinating well. Last Vital Signs Temp Pulse Resp BP Pulse Ox 97.9 F 86 20 104/66 97 08/22/19 06:00 08/22/19 06:00 08/22/19 06:00 08/22/19 06:00 08/21/19 19:51 CBC, BMP 08/22/19 07:15 08/22/19 07:15 PE: Gen: A&O x 3 Resp: breathing comfortably Abd: soft, nondistended, mild RUQ tenderness, incisions clean with no erythema, drain in place serosanguinous drainage. Problem List - Problems (1) Acute gangrenous cholecystitis Assessment/Plan: Plan -pt appears to be doing well, will plan to remove drain later today -adv diet -OOB/ambulate -most likely discharge tomorrow Code(s): K81.0 - ACUTE CHOLECYSTITIS
--- NOTE | 2019-08-22 11:24 | PN ---
Progress Note, Physician Chief Complaint: Patient seen and examined at the bedside, RUQ abdominal pain, appetite fair. History of Present Illness: This 63 yr old female with hx of prediabetes, colonic diverticulosis, HTN, and antral ulcers admitted via ER with acute RUQ and epigastric abdominal pain, and acute nausea and vomiting. S/p recent laparascopic cholecystectomy for an acute gangrenous cholecystitis. - Current Medication List Current Medications: Active Medications Acetaminophen (Tylenol -) 650 mg PO Q6H PRN PRN Reason: FEVER Fentanyl (Sublimaze Injection -) 50 mcg IVPUSH [id number] PRN PRN Reason: PAIN-PACU ORDER X 4 DOSES ONLY Stop: 08/22/19 14:06 Last Admin: 08/21/19 14:42 Dose: 50 mcg Lactated Ringer's (Lactated Ringers Solution) 1,000 mls @ 125 mls/hr IV ASDIR [facility] Last Admin: 08/21/19 14:15 Dose: 100 mls Lisinopril (Prinivil) 10 mg PO DAILY [facility] Last Admin: 08/22/19 10:11 Dose: 10 mg Ondansetron HCl (Zofran Injection) 4 mg IVPUSH Q6H PRN PRN Reason: NAUSEA AND/OR VOMITING Oxycodone HCl (Roxicodone -) 10 mg PO Q4H PRN PRN Reason: PAIN LEVEL 6-10 Last Admin: 08/21/19 23:41 Dose: 10 mg Oxycodone HCl (Roxicodone -) 5 mg PO Q4H PRN PRN Reason: PAIN LEVEL 1-5 Promethazine HCl (Phenergan Injection -) 12.5 mg IVPB Q6H PRN PRN Reason: NAUSEA-FOR RESCUE AFTER 15 MIN Stop: 08/22/19 14:06 - Objective Vital Signs: Vital Signs Temperature 97.9 F 08/22/19 10:00 Pulse Rate 60 08/22/19 10:00 Respiratory Rate 08/22/19 10:00 Blood Pressure 118/67 08/22/19 10:00 O2 Sat by Pulse Oximetry (%) 97 08/21/19 19:51 Constitutional: Yes: Well Nourished, Calm, Mild Distress Eyes: Yes: Conjunctiva Clear, EOM Intact HENT: Yes: Atraumatic, Normocephalic Neck: Yes: Supple, Trachea Midline Cardiovascular: Yes: Regular Rate and Rhythm Respiratory: Yes: Regular, CTA Bilaterally Gastrointestinal: Yes: Normal Bowel Sounds, Soft, Tenderness (RUQ) ...Rectal Exam: Yes: Deferred Genitourinary: Yes: WNL Breast(s): Yes: WNL Musculoskeletal: Yes: WNL Extremities: Yes: WNL Edema: No Peripheral Pulses WNL: Yes Peripheral Pulses: Left Radial: 3+, Right Radial: 3+, Left Doralis Pedis: 3+, Right Dorsalis Pedis: 3+, Left Femoral: 3+, Right Femoral: 3+ Integumentary: Yes: Incision Wound/Incision: Yes: Draining (sersanguinous fluid) Neurological: Yes: Alert, Oriented ...Motor Strength: WNL Psychiatric: Yes: Alert, Oriented Labs: CBC, BMP 08/22/19 07:15 08/22/19 07:15 Problem List - Problems (1) RUQ abdominal pain Code(s): R10.11 - RIGHT UPPER QUADRANT PAIN (2) Cholelithiases Code(s): K80.20 - CALCULUS OF GALLBLADDER W/O CHOLECYSTITIS W/O OBSTRUCTION Qualifiers: Cholelithiasis location: gallbladder Cholecystitis presence: without cholecystitis Biliary obstruction: without biliary obstruction Qualified Code(s): K80.20 - Calculus of gallbladder without cholecystitis without obstruction (3) Epigastric pain Code(s): R10.13 - EPIGASTRIC PAIN (4) Hypertension Code(s): I10 - ESSENTIAL (PRIMARY) HYPERTENSION (5) Prediabetes Code(s): R73.03 - PREDIABETES (6) Diverticulosis Code(s): K57.90 - DVRTCLOS OF INTEST, PART UNSP, W/O PERF OR ABSCESS W/O BLEED (7) Facet arthritis, degenerative, lumbar spine Code(s): M47.816 - SPONDYLOSIS W/O MYELOPATHY OR RADICULOPATHY, LUMBAR REGION (8) Acute gangrenous cholecystitis Code(s): K81.0 - ACUTE CHOLECYSTITIS (9) Anemia Code(s): D64.9 - ANEMIA, UNSPECIFIED (10) Nausea and vomiting Code(s): R11.2 - NAUSEA WITH VOMITING, UNSPECIFIED Assessment/Plan Assessment/plan: acute RUQ abdominal pain, acute epigastric pain, acute nausea and vomiting, acute gangrenous cholecystitis, acute anemia; IV fluids, analgesics, serum iron, TIBC, serum ferritin, ambulation, incentive spirometer.
[2019-08-22] MEDS: LACTATED RINGERS SOLUTION 1,000 ML IV SCH ×2 (14:01→16:30)
--- NOTE | 2019-08-22 15:19 | PATH ---
Surgical Pathology Report Patient Name: OLGA LIDIA SAMUELS Med. Rec. #: [id number] /Age/Gender: 1955 (Age: 63) / F Account: [id number] Location: [facility] MED/SURG Taken: 08/21/2019 Received: 08/21/2019 Reported: 08/22/2019 Physicians: Kong Oconnor MD Specimen(s) Received GALLBLADDER Clinical History Cholecystitis Final Diagnosis GALLBLADDER, CHOLECYSTECTOMY: CHRONIC AND NECROTIZING CHOLECYSTITIS AND CHOLELITHIASIS. Electronically Signed Josiah Alford M.D. Gross Description Received in formalin, labeled "gallbladder," is a 6.3 x 3.0 x 2.3 cm. gallbladder with a 0.2 cm. in length portion of cystic duct attached. The outer surface is south-red with multifocal defects and varies from smooth to shaggy. The lumen contains south, tenacious bile as well as 2 green, irregular choleliths averaging 1.8 cm in greatest dimension. The mucosa is south-red and focally eroded. The wall of the gallbladder averages 0.3 cm. in thickness. Immersion [employer] sections are submitted in one cassette. DL/08/21/2019 saudi/08/21/2019
[2019-08-22] MEDS: POLYETHYLENE GLYCOL 3350 119 GM BTL PO SCH (22:32)
[2019-08-23] MEDS: LACTATED RINGERS SOLUTION 1,000 ML IV SCH ×2 (01:49→21:46)
--- NOTE | 2019-08-23 08:42 | PN ---
Progress Note, Physician Chief Complaint: Patient seen and examined at the bedside, c/o constipation, denies to nausea, vomiting, or abdominal pain. History of Present Illness: This 63 yr old female with hx of prediabetes, colonic diverticulosis, HTN, and antral ulcers admitted via ER with an acute RUQ and epigastric pain, and nausea and vomiting. Patient underwent laparascopic cholecystectomy and was found to have a gangrenous cholecystitis. - Current Medication List Current Medications: Active Medications Acetaminophen (Tylenol -) 650 mg PO Q6H PRN PRN Reason: FEVER Last Admin: 08/22/19 22:45 Dose: 650 mg Lactated Ringer's (Lactated Ringers Solution) 1,000 mls @ 125 mls/hr IV ASDIR [facility] Last Admin: 08/23/19 01:49 Dose: 125 mls/hr Lisinopril (Prinivil) 10 mg PO DAILY [facility] Last Admin: 08/22/19 10:11 Dose: 10 mg Ondansetron HCl (Zofran Injection) 4 mg IVPUSH Q6H PRN PRN Reason: NAUSEA AND/OR VOMITING Oxycodone HCl (Roxicodone -) 10 mg PO Q4H PRN PRN Reason: PAIN LEVEL 6-10 Last Admin: 08/21/19 23:41 Dose: 10 mg Oxycodone HCl (Roxicodone -) 5 mg PO Q4H PRN PRN Reason: PAIN LEVEL 1-5 Last Admin: 08/22/19 22:42 Dose: 5 mg Polyethylene Glycol (Miralax (For Daily Use) -) 17 gm PO BID [facility] Last Admin: 08/22/19 22:32 Dose: 17 grams - Objective Vital Signs: Vital Signs Temperature 97.8 F 08/23/19 06:25 Pulse Rate 75 08/23/19 06:25 Respiratory Rate 20 08/23/19 06:25 Blood Pressure 111/59 L 08/23/19 06:25 O2 Sat by Pulse Oximetry (%) 95 08/22/19 21:00 Constitutional: Yes: Well Nourished, Calm, Mild Distress Eyes: Yes: Conjunctiva Clear, EOM Intact HENT: Yes: Atraumatic, Normocephalic Neck: Yes: Supple, Trachea Midline Cardiovascular: Yes: Regular Rate and Rhythm Respiratory: Yes: Regular, CTA Bilaterally Gastrointestinal: Yes: Normal Bowel Sounds, Soft, Other (constipation) ...Rectal Exam: Yes: Deferred Genitourinary: Yes: WNL Musculoskeletal: Yes: WNL Extremities: Yes: WNL Edema: No Peripheral Pulses WNL: Yes Peripheral Pulses: Left Radial: 3+, Right Radial: 3+, Left Doralis Pedis: 3+, Right Dorsalis Pedis: 3+, Left Femoral: 3+, Right Femoral: 3+ Integumentary: Yes: WNL Neurological: Yes: Alert, Oriented ...Motor Strength: WNL Psychiatric: Yes: WNL Labs: CBC, BMP 08/22/19 07:15 08/22/19 07:15 Problem List - Problems (1) RUQ abdominal pain Code(s): R10.11 - RIGHT UPPER QUADRANT PAIN (2) Cholelithiases Code(s): K80.20 - CALCULUS OF GALLBLADDER W/O CHOLECYSTITIS W/O OBSTRUCTION Qualifiers: Cholelithiasis location: gallbladder Cholecystitis presence: without cholecystitis Biliary obstruction: without biliary obstruction Qualified Code(s): K80.20 - Calculus of gallbladder without cholecystitis without obstruction (3) Epigastric pain Code(s): R10.13 - EPIGASTRIC PAIN (4) Hypertension Code(s): I10 - ESSENTIAL (PRIMARY) HYPERTENSION (5) Prediabetes Code(s): R73.03 - PREDIABETES (6) Diverticulosis Code(s): K57.90 - DVRTCLOS OF INTEST, PART UNSP, W/O PERF OR ABSCESS W/O BLEED (7) Facet arthritis, degenerative, lumbar spine Code(s): M47.816 - SPONDYLOSIS W/O MYELOPATHY OR RADICULOPATHY, LUMBAR REGION (8) Acute gangrenous cholecystitis Code(s): K81.0 - ACUTE CHOLECYSTITIS (9) Anemia Code(s): D64.9 - ANEMIA, UNSPECIFIED (10) Nausea and vomiting Code(s): R11.2 - NAUSEA WITH VOMITING, UNSPECIFIED (11) Constipation Code(s): K59.00 - CONSTIPATION, UNSPECIFIED Assessment/Plan Assessment/plan: acute gangrenous cholecystitis, acute constipation; IV fluids, milk of magnesia plus dulcolax supp, discharge planning, social professionals request.
[2019-08-23] MEDS ORDERED: BISACODYL 10 MG SUPP.RECT RC ONE (09:30)
[2019-08-23] MEDS ORDERED: MAGNESIUM HYDROX 2400MG/30ML ORAL SUSPENSION 30 ML CUP PO ONE (09:30)
[2019-08-23] MEDS: LISINOPRIL 10 MG TABLET (FP) PO SCH (09:38)
[2019-08-23] MEDS: POLYETHYLENE GLYCOL 3350 119 GM BTL PO SCH ×2 (09:38→21:46)
[2019-08-23 10:14] LABS: EOS % 5.1 % (0-4.5); HEMATOCRIT 29.1 % (32.4-45.2); HEMOGLOBIN 9.6 GM/dL (10.7-15.3); LYMPH % 35.6 % (8-40); MCH 30.7 pg (25.7-33.7); MEAN PLT VOLUME 10.5 fl (7.5-11.1); MONO % 11.7 % (3.8-10.2); NEUT % 46.6 % (42.8-82.8); PLATELET COUNT 245 K/MM3 (134-434); RBC 3.13 M/mm3 (3.60-5.2); RDW 14.7 % (11.6-15.6); WHITE BLOOD COUNT 6.7 K/mm3 (4.0-10.0)
--- NOTE | 2019-08-24 10:27 | DS ---
Physical Examination Vital Signs: Vital Signs Temperature 97.9 F 08/24/19 06:00 Pulse Rate 71 08/24/19 06:00 Respiratory Rate 20 08/24/19 06:00 Blood Pressure 123/69 08/24/19 06:00 O2 Sat by Pulse Oximetry (%) 95 08/23/19 21:00 Labs: CBC, BMP 08/23/19 07:50 08/22/19 07:15 Discharge Summary Problems reviewed: Yes Reason For Visit: ABD. PAIN/ VOMITNG Current Active Problems Acute gangrenous cholecystitis (Acute) Anemia (Acute) Cholelithiases (Acute) Constipation (Acute) Diverticulosis (Acute) Epigastric pain (Acute) Facet arthritis, degenerative, lumbar spine (Acute) Hypertension (Acute) Nausea and vomiting (Acute) Prediabetes (Acute) RUQ abdominal pain (Acute) - Instructions Diet, Activity, Other Instructions: Dr. Oconnor Discharge Instructions Dear OLGA LIDIA SAMUELS, Post Operative Instructions Physical activity Resume your normal everyday activity as tolerated no heavy lifting or exercise until seen by your surgeon. You may walk unlimited amounts of and climb stairs. You may resume driving the car when you feel safe and comfortable behind the wheel and are no longer taking narcotics. Wound care If you have a bandage, leave it on, and keep dry for 48 hours. After that time discard the outer bandage. If there are tapes on the skin under the outer bandage, leave them in place. They will peel off in the next 7 to 10 days. Do Not peel them off. You may shower 2 days after surgery but do not submerge the incisions. If there are tapes present on the skin, they can get wet. Do not apply lotion or ointments to incision. Diet There are no dietary restrictions. Eat healthy, high-fiber foods. Drink 6 to 8 glasses of liquid each day. This will assist in keeping your bowels are regular. Pain management You may take Tylenol or acetaminophen or Ibuprofen (for example, Motrin, Advil etc.) Any pain prescription medication ordered should be taken as prescribed for moderate to severe pain. Call Dr. Oconnor for any of the following: Severe pain not relieved by medication Fever of 101 or higher Excessive bleeding or drainage on dressing Inability to urinate If you experience any chest pain or shortness of breath please seek emergency treatment immediately. Call the office at [phone] for a post operative appointment in 7 - 10 days. Disposition: HOME - Home Medications Comprehensive Discharge Medication List: Ambulatory Orders Lisinopril 10 mg PO DAILY #7 tablet 02/25/14 Ubidecarenone/Vitamin E Mixed [Coq10 Sg 100 Softgel] 1 each PO DAILY capsule Linaclotide [Linzess] 1 cap PO PRN PRN 02/03/15 Oxycodone HCl/Acetaminophen [Percocet 5-325 mg Tablet] 1 tab PO Q6H PRN #7 tablet MDD 4 02/04/19 Acetaminophen [Tylenol .Regular Strength -] 650 mg PO Q6H PRN tablet 08/24/19 Lisinopril [Prinivil] 10 mg PO DAILY tablet 08/24/19 Polyethylene Glycol 3350 [Miralax 119 gm Btl -] 17 gm PO BID bottle 08/24/19 Follow surgeon's instructions. Total time spent over 30 minutes.
[2019-08-24] MEDS: LISINOPRIL 10 MG TABLET (FP) PO SCH (10:59)
[2019-08-24] MEDS: POLYETHYLENE GLYCOL 3350 119 GM BTL PO SCH (11:00)
[2019-08-24 11:02] VITALS: BP 125/79; PULSE 74; TEMP 98.1
--- NOTE | 2019-09-28 15:50 | OP ---
DATE OF OPERATION: 08/21/2019 PREOPERATIVE DIAGNOSIS: Acute cholecystitis and cholelithiasis. POSTOPERATIVE DIAGNOSIS: Acute gangrenous cholecystitis and cholelithiasis. PROCEDURE: Laparoscopic cholecystectomy. SURGEON: Kong Oconnor MD SENIOR COMPUTER SPECIALIST: LEEANN Lord ANESTHESIA: General. OPERATIVE FINDINGS: There was acute gangrenous cholecystitis and cholelithiasis. The rest of the findings were unremarkable. PROCEDURE: The patient was placed on the operating table in the supine position and after the induction of general anesthesia the patient's abdomen was prepped with ChloraPrep and draped in sterile fashion. A timeout was taken and pneumoperitoneum established above the umbilicus using a Veress needle. Once 15 mmHg of pressure were obtained, a 5-mm port was placed at the umbilicus and additional lateral 5-mm ports and a subxiphoid 12-mm port. Laparoscopy was carried out and the previously noted findings were observed. Dissection was begun at the neck of the gallbladder where the peritoneum was opened medially and laterally using blunt dissection and electrocautery. The cystic duct was identified coursing from the neck of the gallbladder towards the common bile duct and it was dissected using blunt dissection proximally and distally for length. Similarly, the artery was identified and dissected proximally and distally for length. A critical view of safety was taken and then the duct and the artery were clipped twice proximally and twice distally with large hemoclips. The duct and artery were then serially divided using Endoshears. Hemostasis was checked for and noted to be good and then the gallbladder was removed from the liver bed in a retrograde fashion using electrocautery. Prior to removal from the edge of the liver, hemostasis in the liver bed was again checked for and noted to be good and then the gallbladder removed from the edge of the liver, placed in an EndoCatch, and brought out through the subxiphoid port. Pneumoperitoneum was reestablished. Copious irrigation was carried out with saline. Hemostasis was verified again. A 10-mm Dave-Mora drain was placed in the right hepatorenal fossa and brought out through 1 of the 5-mm ports and secured to the skin with 2-0 silk suture. All port sites were removed under laparoscopic vision without evidence of bleeding from the port sites. The port sites were infiltrated with 0.5% Marcaine and the skin edges reapproximated with 4-0 Biosyn in a subcuticular continuous fashion. Steri-Strips and Band-Aid dressings were placed. The drain was connected to bulb suction and then the patient aroused from general anesthesia and transferred to the postanesthesia care unit in stable condition, awake and alert. ESTIMATED BLOOD LOSS: 25 mL. REPLACEMENT: Crystalloid. DRAINS: One 10-mm Dave-Mora in the gallbladder fossa. SPECIMEN: Gallbladder and contents to Pathology. I, Kong Oconnor, was physically present in the operating room from the time the patient was placed on the operating table until she was transferred to the postanesthesia care unit in [place]. MD MIKEY Cárdenas/[id number]
== END 2019-08-24 12:47 | disposition home or self-care (01) | DRG 419 ==
LOC: JER 08:16 → JERBED 16:54 → J8W 08-21 15:26
PROVIDERS: ADMIT Family Medicine; ATTEND Family Medicine
PROC: 0FT44ZZ Resection of Gallbladder, Percutaneous Endoscopic Approach (ICD-10-PCS; principal; 2019-08-21 10:59)
DX: K80.00 Calculus of gallbladder with acute cholecystitis without obstruction (principal); I10 Essential (primary) hypertension; D64.9 Anemia, unspecified; K59.00 Constipation, unspecified; R10.11 Right upper quadrant pain
CPT/HCPCS: 36415; 74176-TC; 76705-TC; 80053; 81003; 82550; 82728; 83540; 83550; 83690; 84484; 85025; 87086; 88304-TC; 93005; 93010; 94010; 94760; 97116-GP; 97161-GP; 99284-25; J7030; Q9967